=== PATIENT | male | born 1955 | race Caucasian/White ===

== ENCOUNTER 2017-10-01 01:07 | Observation (INO) | payer BC ==
[2017-10-01] MEDS ORDERED: Acetaminophen 325 MG TAB PO PRN (02:07)
[2017-10-01] MEDS ORDERED: Promethazine HCl 25 MG/ML VIAL IM/IV PRN (02:08)
[2017-10-01] MEDS ORDERED: Ondansetron HCl/PF 4 MG/2 ML Vial IVP PRN (02:08)
[2017-10-01 02:18] VITALS: BMI 32.0
[2017-10-01 04:48] LABS: #Eosinphils 0.1 thou/uL (0.0-0.7); #Lymphocytes 1.2 thou/uL (1.20-3.40); #Monocytes 0.7 thou/uL (0.11-0.59); #Neutrophils 4.7 thou/uL (1.40-6.50); %Basophils 0.6 % (0.0-1.0); %Eosinophils 1.6 % (0.0-10.0); %Lymphocytes 17.9 % (21.0-51.0); %Monocytes 10.2 % (0.0-10.0); %Neutrophils 69.7 % (42.0-75.0); Mean Corpuscular HGB CONC 34.5 g/dL (32.0-36.0); Mean Corpuscular Hemoglobin 31.6 pg (27.0-31.0); Mean Corpuscular Volume 91.5 fl (80.0-94.0); Mean Platelet Volume 7.4 fL (7.4-10.4); Platelet Count 125 thou/uL (130-400); RBC Distribution Width 11.8 % (11.5-14.5); Red Blood Cell (RBC) Count 4.75 mill/uL (4.70-6.10); White Blood Cell (WBC) Count 6.7 thou/uL (4.8-10.8)
[2017-10-01 05:06] LABS: Hemoglobin A1c 5.6 % (4.0-6.0)
--- NOTE | 2017-10-01 05:10 | HP ---
CHIEF COMPLAINT: Dizziness. PRIMARY CARE PHYSICIAN: Unknown. 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 The patient stated that as he was getting out of hi s car, the patient had a very significant dizzy spell, he stated that the room was spinning. The pat ient then had severe nausea and vomiting; however, denies any chest pain, shortness of breath, abdomi nal pain or diarrhea. The patient stated that he tried to hang around at home, hoping that the dizzi ness would improve; however, it did not. For that reason, he came into the hospital for further eval uation. 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 SOCIAL HISTORY: He denies any alcohol, drug use or smoking history. FAMILY HISTORY: His father had a history of leukemia. PAST SURGICAL HISTORY: He had a resection of the lymph nodes from his right groin area and the left axillary area. The patient also received chemotherapy for the right groin lymph node, which indicate d that it was lymphoma. REVIEW OF SYSTEMS: A 12-point review of systems all negative except for the ones mentioned in the HP I. MEDICATIONS: The patient takes aspirin, lisinopril and carvedilol. PHYSICAL EXAMINATION: VITAL SIGNS: Temperature of 96.1, blood pressure 143/74, pulse is 77, respirations of 18, sats of 98 %. GENERAL: The patient is awake, alert, oriented x3, does not appear in any distress. HEENT: Normocephalic, atraumatic. No lymphadenopathy. Conjunctivae are not pale. Mucous membranes are a little dry. CARDIOVASCULAR: S1, S2 present. No murmurs, rubs or gallops. RESPIRATORY: Lungs are clear to auscultation. No rhonchi or wheezes noted. ABDOMEN: Soft, nontender. Bowel sounds are present x2. No hepatomegaly, splenomegaly noted. NEUROLOGIC: The patient is awake, alert, and oriented x3. [id number] and pbxd-sl-[id number] intact. The patient has 5/5 upper extremity strength, 5/5 lower extremity strength. Cranial nerves II-XI are intact. PSYCHIATRIC: The patient has a normal affect. DIAGNOSTIC DATA: The patient had a CT head at [facility] and also had a CTA head and neck which I was t old were negative. The patient also had a chest x-ray, which did not indicate any acute abnormalitie s. The patient's a CTA head and neck indicated no acute intracranial abnormalities, mild white matte r hypodensity suggestive of chronic microvascular ischemic changes. No significant narrowing or sten osis of bilateral common carotid arteries or internal carotid arteries. Mild bilateral calcification in the carotid bulb. LABORATORY DATA: Lab ibarra that was done at [facility] indicated CBC with WBC of 6.6, hemoglobin of 14, hematocrit of 45, platelets of 142. Potassium was 4.8. Sodium was 141, BUN of 14, creatinine of 1.3 . LFTs were normal. ASSESSMENT AND PLAN: The patient is a very pleasant 62-year-old male who comes to the hospital with complaints of dizziness. 1. Dizziness, most likely secondary to vertigo versus posterior stroke. A CT brain and CTA are nega tive. However, the patient's history indicates most likely vertigo. We will get an MRI brain. The patient had an echocardiogram a week ago at Dr. Farrell' office. We will get the results of that. We w ill check a lipid panel in the morning. I do not feel this patient needs a Neurology consult. 2. Mild elevation of creatinine. The cut off for normal is 1.2. The patient was 1.3. We will cont inue to monitor. 3. History of lymphoma. 4. Deep venous thrombosis prophylaxis. We will put the patient on subcu heparin.
[2017-10-01 05:11] LABS: Anion Gap 10 mmol/L (10-20); BUN (Urea Nitrogen) 12 mg/dL (8.4-25.7); Calc. Creatinine Clearance 152 mL/min (70-130); Calcium 8.4 mg/dL (7.8-10.44); Carbon Dioxide 23 mmol/L (23-31); Cardiac Risk 4.5 (Less than 4.5); Chloride 111 mmol/L (98-107); Cholesterol 158 mg/dl (< 200 Desired); Estimated GFR-MDRD Greater than 90; Glucose 125 mg/dL (80-115); HDL Cholesterol 35 mg/dL (>60 Neg Risk); LDL Cholesterol, Calculated 106 mg/dL; Potassium 4.5 mmol/L (3.5-5.1); Sodium 139 mmol/L (136-145); Triglycerides 83 mg/dL (Less than 150)
[2017-10-01] MEDS ORDERED: Lisinopril 2.5 MG TAB PO SCH (09:00)
[2017-10-01] MEDS ORDERED: Enoxaparin Sodium 40 MG/0.4 ML SYRINGE SC SCH (09:00)
[2017-10-01] MEDS ORDERED: Aspirin 325 mg Enteric Coated Tablet PO SCH (09:00)
[2017-10-01] MEDS ORDERED: Carvedilol 6.25 MG TAB PO SCH (09:00)
--- NOTE | 2017-10-01 09:14 | MRI ---
MRI BRAIN NONCONTRAST: Indication: Stroke, vertigo, dizziness. Outside images are loaded for comparison. FINDINGS: There is no acute territorial infarction, mass effect, midline shift, or ventriculomegaly. No intracr anial hemorrhagic susceptibility. There are no significant abnormalities of the brain parenchyma. The images skull base flow voids are patent. There is mild mucosal thickening within the paranasal sinus es. IMPRESSION: No acute abnormalities are demonstrated by noncontrast brain MRI. POS: SHAI
[2017-10-01] MEDS ORDERED: Artificial Tears 18 DROP/0.9 ML EA EYE PRN (09:26)
[2017-10-01] MEDS ORDERED: Sodium Chloride 0.65% Nasal 44 ML BOT EA NARE PRN (09:26)
[2017-10-01] MEDS ORDERED: Loratadine 10 MG TAB PO PRN (09:26)
[2017-10-01] MEDS ORDERED: Senokot 8.6 MG TAB PO PRN (09:26)
[2017-10-01] MEDS ORDERED: Eucerin (Mineral Oil/Petrolatum,White) 30 gm Jar TOP PRN (09:26)
[2017-10-01] MEDS ORDERED: hydrALAZINE 20 MG/ML VIAL SLOW IVP PRN (09:26)
[2017-10-01] MEDS ORDERED: Diabetic Tussin 200 MG/10 ML UDCUP PO PRN (09:26)
[2017-10-01] MEDS ORDERED: Ondansetron ODT 4 MG TAB PO PRN (09:26)
[2017-10-01] MEDS ORDERED: Mag-Al 1200 mg/1200 mg/30 ML UDCUP PO PRN (09:26)
[2017-10-01] MEDS ORDERED: Zolpidem Tartrate 5 MG TAB PO PRN (09:26)
[2017-10-01] MEDS ORDERED: HYDROcodone/Acetaminophen 5/325 mg Tablet PO PRN (09:26)
[2017-10-01] MEDS ORDERED: Chloraseptic Spray 180 ml Bottle PO PRN (09:26)
[2017-10-01] MEDS ORDERED: Milk Of Magnesia 30 ML UDCUP PO PRN (09:26)
[2017-10-01 11:47] VITALS: TEMP 97.8
--- NOTE | 2017-10-01 13:29 | SS ---
PRIMARY CARE PHYSICIAN: Dr. Howard Christian DATE OF ADMISSION: 10/01/2017 at 1:46 a.m. DATE OF DISCHARGE: 10/01/2017 at 12:56 p.m. PRIMARY DISCHARGE DIAGNOSIS: Acute vertigo, likely due to benign paroxysmal positional vertigo, resolved. SECONDARY DISCHARGE DIAGNOSIS: Hypertension. 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 The patient has chronic ear problem and he is using ear plugs. He suddenly started feeling dizziness with a spinning sensation associated with nausea and vomiting. He did not have any diplopia, but with position change of his head he was feeling more and more dizziness and vertigo. At [facility] emergency room, he was evaluated and subsequently he was transferred to our hospital for need of MRI to rule out stroke. He did not have any cerebellar sign. He did not have any nausea. He did not have at any diarrhea, chest pain, palpitations or syncope. He did not have any fall, but he was not able to maintain his balance without any assistance. After admission, we did a complete neurological examination and neurological examination was completely normal. His history and presentation was consistent with benign paroxysmal positional vertigo. The patient was given Antivert and the patient had significant improvement in his symptoms. Subsequently, we did MRI brain and MRI brain came back completely normal and we ruled out acute stroke. We also checked orthostatic vitals, but that was not super impressive to contribute to his clinical presentation. REVIEW OF SYSTEMS: The following complete review of systems was negative, unless otherwise mentioned in the HPI or below: Constitutional: Weight loss or gain, ability to conduct usual activities. Skin: Rash, itching. Eyes: Double vision, pain. ENT/Mouth: Nose bleeding, neck stiffness, pain, tenderness. Cardiovascular: Palpitations, dyspnea on exertion, orthopnea. Respiratory: Shortness of breath, wheezing, cough, hemoptysis, fever or night sweats. Gastrointestinal: Poor appetite, abdominal pain, heartburn, nausea, vomiting, constipation, or diarrhea. Genitourinary: Urgency, frequency, dysuria, nocturia. Musculoskeletal: Pain, swelling. Neurologic/Psychiatric: Anxiety, depression. Allergy/Immunologic: Skin rash, bleeding tendency. Please see my HPI for pertinent positive and negatives. All other review of systems reviewed and negative except as mentioned in the HPI. PAST MEDICAL HISTORY: Cardiomyopathy secondary to chemotherapy. History of lymphoma, hypertension. PAST SURGICAL HISTORY: Reviewed and negative, except the patient had lymph node removed from right groin and left axillary area and that came back positive for lymphoma. FAMILY HISTORY: Father had a history of leukemia. SOCIAL HISTORY: The patient is . He lives at home with his . No history of tobacco, alcohol or illicit drug abuse. CURRENT HOME MEDICATIONS: Lisinopril 2.5 mg p.o. daily, Coreg 12.5 mg p.o. b.i.d. PAST PSYCHIATRIC HISTORY: Reviewed and negative. EMERGENCY ROOM COURSE: Reviewed. ALLERGIES: No known drug allergy. PHYSICAL EXAMINATION: VITAL SIGNS: Today, temperature 97.8, pulse 56, respiratory rate 16, saturation 98%, blood pressure 107/53 standing 99/61, weight 263 pounds. GENERAL: The patient is currently alert, awake, no acute distress. HEAD: Normocephalic, atraumatic. EYES: Pupils round, reactive to light. Extraocular muscle intact. ENT: Oropharynx within normal limits. Moist mucous membranes. No oral lesion , no pharyngeal erythema, no exudate. NECK: Supple, no JVD, no thyromegaly, no carotid bruit. LUNGS: Clear. CARDIAC: S1, S2 regular. No murmur, no gallop, no rub. ABDOMEN: Soft, benign without any tenderness. EXTREMITIES: No edema. NEUROLOGIC: The patient is alert, oriented x3. Cranial nerves II-XII intact. Motor; 5/5 in all 4 limbs. Sensation bilaterally symmetrical. No cerebellar sign. Plantar bilateral flexor. No nystagmus. PSYCHIATRIC: Normal affect. SIGNIFICANT LABS: CBC: WBC 6.7, hemoglobin 15.0, platelet 125. BMP; sodium 139, potassium 4.5, chloride 111, carbon dioxide 23, anion gap 10, BUN 12, creatinine 0.85, glucose 125, calcium 8.4, hemoglobin A1c 5.6, triglyceride 83, cholesterol 158, LDL 106, HDL 35. DISCHARGE MEDICATIONS: Coreg 12.5 mg p.o. twice daily, lisinopril 2.5 mg p.o. b.i.d., aspirin 81 mg p.o. daily, Antivert 25 mg p.o. t.i.d. p.r.n. CONTRAINDICATIONS: None. CODE STATUS: FULL CODE. INPATIENT CONSULTANTS: None. ALLERGIES: No known drug allergy. DISCHARGE PLAN: Post hospital, the patient will follow up with primary care physician in 1 week. ASSESSMENT AND PLAN: 1. Acute dizziness. Clinically consistent with benign paroxysmal positional vertigo, improved with Antivert. MRI brain is negative. The patient's symptoms completely resolved. Patient is medically stable for discharge today. Telemetry unremarkable. will give antivert on discharge as needed basis 2. Hypertension with mild orthostatic hypotension. The patient is given necessary patient education about orthostatic hypotension. The patient will continue all his previous medication including Coreg and lisinopril as per home dosage.pt is advised to take ecotrin 81 mg daily 3. Deep venous thrombosis prophylaxis. Not needed because the patient is planned for discharge today. 4. Gastrointestinal prophylaxis not needed because patient does not have any symptoms. While in hospital we provided Pepcid 20 mg p.o. b.i.d. Plan of care discussed with the patient and family member, patient is admitted and discharged on the same day. SHANNAD
[2017-10-01] MEDS ORDERED: Atorvastatin Calcium 40 MG TAB PO SCH (21:00)
[2017-10-01] MEDS ORDERED: Famotidine 20 MG TAB PO SCH (21:00)
[2017-10-03 13:53] VITALS: BP 113/57
== END 2017-10-01 12:56 | disposition home or self-care (01) ==
LOC: 2SW 01:46
PROVIDERS: ADMIT Internal Medicine; ATTEND Internal Medicine
DX: R42 Dizziness and giddiness (principal); I10 Essential (primary) hypertension; I95.1 Orthostatic hypotension; I42.8 Other cardiomyopathies; H93.93 Unspecified disorder of ear, bilateral; Z85.72 Personal history of non-Hodgkin lymphomas
CPT/HCPCS: 36415; 70551; 80048; 80061; 83036; 85025; 96372; G0378; G8978-GP-CK; G8979-GP-CK; G8980-GP-CK; J1650